=== PATIENT | male | born 1985 | race Caucasian/White ===

== ENCOUNTER 2019-08-30 14:45 | Emergency (ER) | payer OTHER ==
[~2019-08-30] VITALS: Ht 193 cm; Wt 100.5 kg
[2019-08-30 15:13] VITALS: BP 118/63
--- NOTE | 2019-08-30 15:26 | NUR ---
[employer] CO[employer]: PT TO ROOM FROM [facility]
--- NOTE | 2019-08-30 15:46 | NUR ---
PT WITH C/O MIGRAINE, PT WITH HX OF MIGRAINES, STATES IT BECAME REALLY BAD WHILE AT WORK PT WORKS AROUND LOUD SAWS. PT DENIES RINGING IN THE EARS, VISION CHANGES, DIZZINESS AT THIS TIME. PT STATES HE HAD AN OUTPT NEUROLOGIST WHICH WAS NOT APPROVED BY HIS INSURANCE, PT IS WONDERING IF WE CAN HELP HIM WITH RESOURCES TO GET HIM INTO A NEUROLOGIST THAT HIS INSURANCE WILL COVER.
== END 2019-08-30 17:31 ==
LOC: ED 17:25
DX: R51 Headache (principal)
CPT/HCPCS: 99281

== ENCOUNTER 2019-12-18 18:28 | Outpatient (CLI) | payer BC, OTHER | END 2019-12-18 23:59 | disposition home or self-care (01) | LOC: RAD 18:28 | PROVIDERS: ATTEND Physician Assistant | DX: Z02.9 Encounter for administrative examinations, unspecified (principal) ==

== ENCOUNTER 2019-12-19 13:47 | Outpatient (CLI) | payer BC | END 2019-12-19 23:59 | disposition home or self-care (01) | LOC: RAD 13:47 | PROVIDERS: ATTEND Physician Assistant | DX: S99.822A Other specified injuries of left foot, initial encounter (principal); R60.9 Edema, unspecified; W01.0XXA Fall on same level from slipping, tripping and stumbling without subsequent striking against object, initial encounter; Y93.89 Activity, other specified; Y92.89 Other specified places as the place of occurrence of the external cause; Y99.8 Other external cause status ==

== ENCOUNTER 2019-12-23 11:45 | Emergency (ER) | payer BC, OTHER ==
[~2019-12-23] VITALS: Ht 193 cm; Wt 105.5 kg
[2019-12-23 11:48] VITALS: BP 140/96
== END 2019-12-23 12:41 | disposition home or self-care (01) ==
LOC: ED 12:24
DX: S16.1XXA Strain of muscle, fascia and tendon at neck level, initial encounter (principal); S29.012A Strain of muscle and tendon of back wall of thorax, initial encounter; V59.49XA Driver of pick-up truck or van injured in collision with other motor vehicles in traffic accident, initial encounter; Y93.89 Activity, other specified; Y92.488 Other paved roadways as the place of occurrence of the external cause; Y99.8 Other external cause status
CPT/HCPCS: 99282

== ENCOUNTER 2020-02-02 09:10 | Emergency (ER) | payer BC, OTHER ==
[~2020-02-02] VITALS: Ht 193 cm; Wt 104.5 kg
[2020-02-02 09:13] VITALS: BP 144/83
--- NOTE | 2020-02-02 09:30 | NUR ---
"I had surgery on my foot, there's a titanium screw in my foot and I got elecrocuted at work and it's making my kidneys hurt. It's protruding up from my foot to my abdomen and into my head. My vision all, there's metal flakes when I try to focus." Electrocution on 01/23, seen at [facility] 01/28 ADMITS TO ETOH LAST NIGHT RAN OUT OF [facility] 2 DAYS AGO, DID TAKE NEW RX FOR VALIUM THIS MORNING (PRESCRIBED AT [facility] 2 DAYS AGO) NO FOCAL DEFITS, DOES NOT APPEAR TOXIC, VSS
[2020-02-02 10:01] LABS: ANION GAP 8 mmol/L (5-15); CALCIUM 8.6 mg/dL (8.5-10.1); CHLORIDE 110 mmol/L (98-107); CREATININE 1.22 mg/dL (0.7-1.3)
[2020-02-02 10:04] LABS: CREATINE KINASE, TOTAL 636 U/L (39-308)
--- NOTE | 2020-02-02 10:24 | NUR ---
[facility] SENT TOLERATING PO FLUIDS-ABSTRACTOR PUSHING FLUIDS
[2020-02-02 10:35] LABS: CULTURE INDICATED? NO; MICROSCOPIC NOT IND
== END 2020-02-02 11:04 | disposition home or self-care (01) ==
LOC: ED 09:35
DX: T79.6XXA Traumatic ischemia of muscle, initial encounter (principal); R07.89 Other chest pain; R10.9 Unspecified abdominal pain; X58.XXXA Exposure to other specified factors, initial encounter; Y93.89 Activity, other specified; Y92.89 Other specified places as the place of occurrence of the external cause; Y99.8 Other external cause status
CPT/HCPCS: 36415; 80048; 81003; 82550; 93005; 99284

== ENCOUNTER 2021-02-13 09:49 | Emergency (ER) | payer OTHER ==
[~2021-02-13] VITALS: Ht 193 cm; Wt 96.4 kg
[2021-02-13 09:59] VITALS: BP 139/94
--- NOTE | 2021-02-13 10:37 | NUR ---
Down to xray
--- NOTE | 2021-02-13 11:18 | NUR ---
FALL 02/03 F/U WITH [facility] THEY INSTRUCTED PT TO COME TO ED D/T PAIN. CURRENT PAIN 9.5/10 LOWER BACK AND KNEE, THROBBING SHOOTING PAIN. BEEN GOING TO PHYSICAL THERAPY, 4-5 SESSIONS FOR KNEE, HAVING N R/T TO PAIN. HURTS TO COUGH, SNEEZE, DEEP BREATH. TAKING MOTRIN AND SOME STEROID FROM [facility]. TAKES IT DAILY, DOESN'T FEEL LIKE IT DOES ANYTHING. FLEXERIL WAS PRESCRIBED, BUT 1 DIDN'T DO ANYTHING.
--- NOTE | 2021-02-13 11:21 | NUR ---
REPORTS [employer]T IN FEET WHEN SITTING
--- NOTE | 2021-02-13 12:27 | NUR ---
Patient given discharge instructions and they have confirmed that they understand the instructions. Patient ambulatory with steady gait.
== END 2021-02-13 12:28 | disposition home or self-care (01) ==
LOC: ED 11:32
DX: S39.012A Strain of muscle, fascia and tendon of lower back, initial encounter (principal); S33.5XXA Sprain of ligaments of lumbar spine, initial encounter; M25.561 Pain in right knee; W01.0XXA Fall on same level from slipping, tripping and stumbling without subsequent striking against object, initial encounter; Y93.01 Activity, walking, marching and hiking; Y92.89 Other specified places as the place of occurrence of the external cause; Y99.8 Other external cause status
CPT/HCPCS: 72110; 99283